=== PATIENT | male | born 1945 | race Caucasian/White ===

== ENCOUNTER 2023-03-14 13:31 | Outpatient (OUT) | payer MEDICARE, OTHER, SELFPAY | END 2023-03-14 13:32 | disposition home or self-care (01) | LOC: PST 13:36 | PROVIDERS: PCP Internal Medicine; Visit Provider Urology | DX: Z01.818 Encounter for other preprocedural examination (principal); N20.0 Calculus of kidney ==

== ENCOUNTER 2023-03-21 06:06 | Day surgery (SDC) | payer MEDICARE, OTHER, SELFPAY ==
[2023-03-14 13:57] VITALS: BP 122/80; PULSE 80; RESP 14; TEMP 36.3; O2SAT 96; BMI 23.6
[2023-03-21] VITALS (14 sets, daily range): BP systolic 113–157; BP diastolic 73–89; PULSE 57–79; RESP 0–20; TEMP 36–36.3; O2SAT 92–98; BMI 23.8
--- NOTE | 2023-03-21 06:15 | XR_ITS ---
The [address] [address] Patient Name: STEVEN MEEK MRN: [id number] date: 1945 Sex: M Assigned Patient Location: [facility] Current Patient Location: [facility] Accession/Order Number: [id number] Exam Date: 03/21/2023 06:15 Report Date: 03/21/2023 07:14 At the request of: MAHENDRA VELASQUEZ Procedure: XR abdomen 1V EXAMINATION: XR abdomen 1V HISTORY: kidney stones COMPARISON: No relevant comparison available. FINDINGS: KIDNEY/URETER - RIGHT: Right double-J ureteral stent in normal position. 5 mm proximal ureterolith between the right L3 and L4 transverse processes KIDNEY/URETER - LEFT: No visible renal or ureteral calcifications. PELVIS: No visible ureteral calcifications. Any visible calcifications favor phleboliths. BOWEL: No abnormal dilation or deviation. BONES: No acute abnormality. OTHER: Negative. No abnormal gaseous collections. XR/XR abdomen 1V IMPRESSION: Right ureteral stent and proximal 5 mm ureterolith Electronically authenticated by: ELIA ARRIAZA Date: 03/21/2023 07:14
[2023-03-21] MEDS: LACTATED RINGER'S SOLUTION 1,000 ML 50 ML IV ×2 (07:13→08:41)
[2023-03-21] MEDS: CEFAZOLIN SODIUM/DEXTROSE,ISO 1 GM/50 ML IV.SOLN IV (07:26)
--- NOTE | 2023-03-21 08:08 | PM.URSON ---
Urology Surgery Operative Note Operative Note Procedure Date: 03/21/23 Time Out Performed: yes Pre-op Diagnosis: right ureterolithiasis Post-op Diagnosis: same Procedures performed: #1. Right ESWL. #2. Cystoscopy. #3. Right stent removal. Anesthesia: other (Gen. by LMA) Primary Surgeon: Otto Bueno Complications: none Estimated blood loss (mL): 0 Findings: right L3 ureteral calculus with full fragmentation Specimens: none Indications for Procedures: gentleman has a 4-5 mm right proximal ureteral calculus and an ipsilateral ureteral stricture which prevented ureteroscopic stone manipulation several weeks ago. He has a stent in place. He now presents for right ESWL and cystoscopy and possible stent removal and possible ureteroscopic stone manipulation. He has signed an informed consent for these procedures after risks were explained. Some of these risks include bleeding, perinephric hematoma, infection and anesthesia to name a few. Detailed description of Procedure: The patient was brought to the Operating Room and placed on Siemens electromagnetic lithotripsy treatment table in the supine position. SCDs were placed on their lower extremities and turned on and functioning during the entire case. Timeout was done by all parties in the room. We all agreed upon the patient's identification and the planned procedures for this patient. General Anesthesia was then administered via LMA. Treatment head was then brought to the patient's correct side. While using flourscopy the stone was identified and lined up into the crosshairs. We then began applying shocks.a 1st started at power level II.0 and increased to a maximum power level of 3.5. Intermittent fluoroscopy showed that the stone steadily fragmented. We applied a total of 3000 shocks and our last fluoroscopic view showed no evidence of any remaining stone. Part of the procedure was then terminated. His genitalia were sterilely prepped and draped in usual fashion. I then passed a flexible cystoscope per urethra and into the bladder. The stent was identified. A flexible grasping forceps was passed through the scope and the end of the stent was grasped. The scope and stent were then removed. He was then transferred to a [facility] bed and wheeled to PACU in stable condition.
--- NOTE | 2023-03-21 08:42 | PC.NURSE ---
paTIENT IS DROWSEY AND SLEEPING BUT AWAKENS TO NAME . PATIENT DENIES PAIN WHEN ASKED.
== END 2023-03-21 09:30 | disposition home or self-care (01) ==
PROVIDERS: PCP Internal Medicine; Visit Provider Urology
PROC: (CPT 50590; principal; 2023-03-21 07:30)
DX: N20.1 Calculus of ureter (principal); Z87.891 Personal history of nicotine dependence
CPT/HCPCS: 50590; 52310; 74018; J2704